=== PATIENT | male | born 1985 | race Caucasian/White ===

== ENCOUNTER 2018-01-29 16:32 | Emergency (ER) | payer MEDICAID ==
[~2018-01-29] VITALS: Ht 165.1 cm; Wt 67.1 kg
[2018-01-29 16:44] VITALS: BP 145/93
[2018-01-29] MEDS ORDERED: LEVE750T25 PO (16:47)
--- NOTE | 2018-01-29 16:50 | NUR ---
PT SENT TO ER LOBBY TO WAIT FOR A BED.
--- NOTE | 2018-01-29 17:05 | NUR ---
PT PLACED IN A W/C AND PLACED IN CHAIR E FOR CLOSER OBSERVATION.
--- NOTE | 2018-01-29 17:31 | NUR ---
PT MOVED TO BED 7.
--- NOTE | 2018-01-29 17:39 | NUR ---
Note undone in EDM - 01/29/18 at 1753 by MAINE PT RECIEVED FROM [facility]. 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 WITNESSED BY , DESCRIBED FULL STIFFNESS OF BILAT ARMS AND LEGS, EYES ROLLING TO BACK OF HEAD. STATES IT HAPPENED WHILE HE WAS ASLEEP, LASTED APPROXIMATELY 1 MIN. NO ORAL OR HEAD TRUAMA OBSERVED OR STATED BY PT. PT IS AXO X4, WITH EQUAL ABSORPTION PLANT OPERATOR/PUSHES, CLEAR SPEACH IN FULL SENTENCES. PT PLACED ON ALL MONITORS, VS WNL. PENDING MD FALCON
--- NOTE | 2018-01-29 17:39 | NUR ---
PT RECIEVED FROM [facility]. 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 WITNESSED BY , DESCRIBED FULL STIFFNESS OF BILAT ARMS AND LEGS, EYES ROLLING TO BACK OF HEAD. STATES IT HAPPENED WHILE HE WAS ASLEEP, LASTED APPROXIMATELY 1 MIN. NO HEAD TRAUMA OBSERVED OR STATED BY PT. ORAL TRAUMA TO LEFT CHEECK, MILD SWELLING OBSERBVED. PT IS AXO X4, WITH EQUAL TEACHER LEARNING DISABLED/PUSHES, CLEAR SPEACH IN FULL SENTENCES. PT PLACED ON ALL MONITORS, VS WNL. PENDING MD FALCON
[2018-01-29] MEDS ORDERED: LORazepam 2 MG/ML VIAL IVP ONE (17:40)
[2018-01-29] MEDS ORDERED: levETIRAcetam 500 MG TAB PO ONE (17:40)
--- NOTE | 2018-01-29 17:52 | NUR ---
DR REED AT BEDSIDE TO [facility]ANURAG PT
--- NOTE | 2018-01-29 17:59 | NUR ---
SZ PRECAUTIONS IN PLACE
[2018-01-29 18:00] LABS: BASOPHILS # (AUTO) 0.1 K/uL (0.00-0.22); BASOPHILS % (AUTO) 0.7 % (0.0-2.0); EOSINOPHILS # (AUTO) 0.5 K/uL (0-0.4); EOSINOPHILS % (AUTO) 5.8 % (0.0-4.0); HEMATOCRIT 43.6 % (36-52); HEMOGLOBIN 14.5 g/dL (12.0-18.0); LYMPHOCYTES # (AUTO) 2.4 K/uL (2.0-11.5); LYMPHOCYTES % (AUTO) 30.3 % (20.5-51.1); MEAN CORPUSCULAR HEMOGLOBIN 31 pg (27-31); MEAN CORPUSCULAR HGB CONC 33 g/dL (33-37); MEAN CORPUSCULAR VOLUME 92.2 fL (80-94); MONOCYTES # (AUTO) 0.4 K/uL (0.8-1.0); MONOCYTES % (AUTO) 5.7 % (1.7-9.3); NEUTROPHILS # (AUTO) 4.5 K/uL (1.8-7.7); NEUTROPHILS % (AUTO) 57.5 % (42.2-75.2); PLATELET COUNT (AUTO) 267 K/uL (140-450); RED BLOOD CELL COUNT(AUTO) 4.73 MIL/uL (4.20-6.10); RED CELL DISTRIBUTION WIDTH 13.6 % (11.6-13.7); WHITE BLOOD COUNT (AUTO) 7.9 K/uL (4.8-10.8)
[2018-01-29 18:18] LABS: ANION GAP 13.7 (8-16); CARBON DIOXIDE 26.1 mmol/L (21-32); CREATININE 1.1 mg/dL (0.7-1.3); POTASSIUM 3.8 mmol/L (3.5-5.1)
[2018-01-29 18:24] LABS: ALBUMIN 4.3 g/dL (3.4-5.0); MAGNESIUM 2.2 mg/dL (1.8-2.4); TOTAL BILIRUBIN 0.3 mg/dL (0.0-1.0)
[2018-01-29 18:37] LABS: BARBITURATE, URINE NEG. ng/ml (NEG <=200); BENZODIAZEPINE, URINE NEG. ng/mL (NEG <=200); CANNABINOID, URINE NEG. ng/mL (NEG <=50); COCAINE, URINE NEG. ng/mL (NEG <=300); OPIATE, URINE NEG. ng/mL (NEG <=2000); PHENCYCLIDINE SCREEN,URINE NEG. ng/mL (NEG <=25)
[2018-01-29 19:14] VITALS: BP 124/89
--- NOTE | 2018-01-29 19:15 | NUR ---
Patient discharged with v/s stable. Written and verbal after care instructions given and explained. Patient alert, oriented and verbalized understanding of instructions. Ambulatory with steady gait. All questions addressed prior to discharge. ID band removed. Patient advised to follow up with PMD. Rx of MARIBELL VILLAGRAN given. Patient educated on indication of medication including possible reaction and side effects. Opportunity to ask questions provided and answered.
== END 2018-01-29 19:15 | disposition home or self-care (01) ==
LOC: MED 16:32
DX: G40.909 Epilepsy, unspecified, not intractable, without status epilepticus (principal); Z79.899 Other long term (current) drug therapy
CPT/HCPCS: 36415; 80053; 80173; 80305; 82550; 83735; 85025; 96374; 99284; J2060

== ENCOUNTER 2021-09-09 02:40 | Emergency (ER) | payer OTHER, SELFPAY ==
[~2021-09-09] VITALS: Ht 167.6 cm; Wt 68.0 kg
[2021-09-09 02:40] VITALS: BP 167/98
[~2021-09-09 02:40] MED LIST: LEVE750T3 PO
--- NOTE | 2021-09-09 02:40 | NUR ---
PT TAKEN TO BED 12
--- NOTE | 2021-09-09 02:40 | NUR ---
LABS AT BEDSIDE. BLOOD OBTAINED.
--- NOTE | 2021-09-09 02:40 | NUR ---
37 Y/O MALE BIB PRIVATE AUTO, C/O SEIZURE. PATIENT PRESENTS TO ED WITH ACTIVE TONIC/CLONIC SZR LASTING 1 MINUTE IN FAMILY'S CAR. FAMILY STATES PT HAS BEEN SEIZING ON/OFF FOR THE LAST HALF HOUR PRIOR TO HOSPITAL ARRIVAL. SKIN IS PINK/WARM/DRY; PT IS UNCONSCIOUS; LUNGS CLEAR BL; HR EVEN AND REGULAR; NO FEVER, CP, SOB, OR COUGH AT THIS TIME; VSS; PATIENT POSITIONED SUPINE W/ HOB ELEVATED; BEDRAILS UP X2; BED DOWN. ER MD MADE AWARE OF PT STATUS. PT HAS HAD X4 SZRS FROM CAR TO GURNEY. UNABLE TO OBTAIN PT HX, ALLERGY, OR MEDS AT THIS TIME.
[2021-09-09] MEDS ORDERED: LORazepam 2 MG/ML VIAL IVP ONE (02:45)
--- NOTE | 2021-09-09 02:45 | NUR ---
Dr. Stringer examining patient.
[2021-09-09] MEDS ORDERED: LORazepam 2 MG/ML VIAL ONE (02:46)
[2021-09-09 02:51] LABS: BASOPHILS # (AUTO) 0.1 K/uL (0.00-0.22); BASOPHILS % (AUTO) 0.5 % (0.0-2.0); EOSINOPHILS % (AUTO) 3.8 % (0.0-4.0); HEMOGLOBIN 14.9 g/dL (12.0-18.0); MEAN CORPUSCULAR HEMOGLOBIN 31 pg (27-31); MEAN CORPUSCULAR HGB CONC 33 g/dL (33-37); MEAN CORPUSCULAR VOLUME 93.4 fL (80-94); MONOCYTES # (AUTO) 1.7 K/uL (0.8-1.0); MONOCYTES % (AUTO) 6.7 % (1.7-9.3); NEUTROPHILS # (AUTO) 10.7 K/uL (1.8-7.7); PLATELET COUNT (AUTO) 393 K/uL (140-450); RED BLOOD CELL COUNT(AUTO) 4.82 MIL/uL (4.20-6.10)
[2021-09-09 02:52] LABS: WHITE BLOOD COUNT (AUTO) 25.5 K/uL (4.8-10.8)
[2021-09-09] MEDS ORDERED: NACL 0.9% 1,000 ML IV ONE ×2 (02:55→04:05)
--- NOTE | 2021-09-09 02:55 | NUR ---
BOLUS OF 1000ML OF NS GIVEN AT THIS TIME PER MD. COMPLETED AT 0326.
[2021-09-09 03:30] LABS: ALBUMIN 4.3 g/dL (3.4-5.0); ANION GAP 25.1 (8-16); CARBON DIOXIDE 16.4 mmol/L (21-32); CREATININE 1.3 mg/dL (0.6-1.3); POTASSIUM 3.5 mmol/L (3.5-5.1); TOTAL BILIRUBIN 0.2 mg/dL (0.0-1.0)
--- NOTE | 2021-09-09 04:16 | NUR ---
PT WAS GIVEN 2MG/1ML OF LORAZEPAM VIA IM AT 0238 FOR ACTIVE SZR, PT WAS AGAIN GIVEN 2MG/1ML LORAZEPAM VIA IV AT 0248 FOR ACTIVE SZR, AND A 3RD TIME OF 2MG/1ML LORAZEPAM VIA IV AT 0303. PT HAS HAS A TOTAL OF 6MG AT THIS TIME.
--- NOTE | 2021-09-09 04:26 | NUR ---
PT'S CALLED TO CHECK UP ON PT. , GARRISON, STATED THAT THE PT BEGAN HAVING HEADACHES AND FEELING TIRED AT 0130 THIS MORNING PRIOR TO HIS SEIZURES. FAMILY STATES PT TAKES 1500MG KEPPRA BID, NKA, AND A HX OF SEIZURES. FAMILY STATES PT TYPICALLY HAS A FEVER WITH HIS SEIZURES. ALL QUESTIONS AND CONCERNS ADDRESSED AT THIS TIME. POC: SISTER, SONIA- , GARRISON-
[2021-09-09] MEDS ORDERED: LEVE1000 PO (06:20)
--- NOTE | 2021-09-09 07:38 | NUR ---
REPORT GIVEN TO LORENA ROLAND
--- NOTE | 2021-09-09 07:39 | NUR ---
REPORT RECEIVED FROM [facility] FOR TRANSFER OF CARE
--- NOTE | 2021-09-09 08:24 | NUR ---
Patient appears to be resting comfortably in bed. Vital Signs within normal limits. Respirations even and unlabored.
--- NOTE | 2021-09-09 09:47 | NUR ---
SPOKE WITH PATIENT AND INFORMED PATIENT IS UP FOR DISCHARGE. 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
[2021-09-09 10:02] VITALS: BP 111/76
--- NOTE | 2021-09-09 10:03 | NUR ---
Patient discharged with v/s stable. Written and verbal after care instructions given and explained. Patient verbalized understanding. Ambulatory with steady gait. All questions addressed prior to discharge. Advised to follow up with PMD.
== END 2021-09-09 10:02 | disposition home or self-care (01) ==
LOC: MED 02:40
DX: R56.9 Unspecified convulsions (principal); Z79.899 Other long term (current) drug therapy; Z98.890 Other specified postprocedural states
CPT/HCPCS: 36415; 80053; 80173; 85025; 96361; 96374; 99285; J2060; J7030

== ENCOUNTER 2021-11-01 19:37 | Inpatient (IN) | payer OTHER, SELFPAY ==
[~2021-11-01] VITALS: Ht 165.1 cm; Wt 68.0 kg
[~2021-11-01 19:37] MED LIST changes: +LEVE1000 PO
[2021-11-01 19:45] VITALS: BP 128/77
--- NOTE | 2021-11-01 19:49 | NUR ---
PATIENT REPORTS SEIZURE ACTIVITY. PER FAMILY HE HAS HAD 4 SEIZURES TODAY, TAKES KEPPRA. HISTORY OF SEIZURES SINCE 2007
[2021-11-01] MEDS ORDERED: ACETAMINOPHEN EXTRA STRENGTH 500 MG TAB PO ONE (19:50)
[2021-11-01] MEDS ORDERED: VALPROATE SODIUM IV ONE (19:50)
[2021-11-01] MEDS ORDERED: NACL 0.9% IV ONE (19:50)
--- NOTE | 2021-11-01 20:08 | NUR ---
TAKEN TO CT
--- NOTE | 2021-11-01 20:16 | NUR ---
BACK FROM CT
[2021-11-01 20:25] LABS: BASOPHILS # (AUTO) 0.1 K/uL (0.00-0.22); EOSINOPHILS # (AUTO) 0.2 K/uL (0-0.4); LYMPHOCYTES # (AUTO) 1.7 K/uL (2.0-11.5); MEAN CORPUSCULAR HEMOGLOBIN 30 pg (27-31); MEAN CORPUSCULAR HGB CONC 33 g/dL (33-37)
[2021-11-01] MEDS ORDERED: VALPROATE SODIUM 500 MG/5 ML VIAL IV ONE (20:45)
[2021-11-01] MEDS ORDERED: LORazepam 2 MG/ML VIAL IVP ONE ×3 (20:48→21:50)
[2021-11-01] MEDS ORDERED: LORazepam 2 MG/ML VIAL ONE ×2 (20:48→21:36)
--- NOTE | 2021-11-01 20:48 | NUR ---
Amanda whitfield in EDM - 11/01/21 at 2237 by MEDGJ VERBAL ORDER RECEIVED FROM DR. SY ATIVAN 2MG IVP x1 FOR SEIZURE
--- NOTE | 2021-11-01 20:49 | NUR ---
PATIENT HAD SEIZURE ACTIVITY AT THIS TIME LASTING APPROX 30 SECONDS. ACTIVITY STOPPED PRIOR TO ATIVAN ADMINISTRATION. ER MD AWARE, ADVISED TO HOLD ATIVAN. COMPLAINTS OF HEADACHE AT THIS TIME. PRESENTED RIGID, NO TONIC CLONIC ACTIVITY. COMPLAINS OF HEADACHE AT THIS TIME AND BACK TO BASELINE
[2021-11-01 20:51] LABS: ALBUMIN 3.8 g/dL (3.4-5.0); ANION GAP 10.2 (8-16); CARBON DIOXIDE 26.4 mmol/L (21-32); CREATININE 1.1 mg/dL (0.6-1.3); POTASSIUM 3.6 mmol/L (3.5-5.1); TOTAL BILIRUBIN 0.6 mg/dL (0.0-1.0)
[2021-11-01 20:52] LABS: HEMOGLOBIN 14.1 g/dL (12.0-18.0); RED BLOOD CELL COUNT(AUTO) 4.65 MIL/uL (4.20-6.10); WHITE BLOOD COUNT (AUTO) 19.2 K/uL (4.8-10.8)
[2021-11-01 20:53] LABS: BASOPHILS % (AUTO) 0.6 % (0.0-2.0); HEMATOCRIT 42.3 % (36-52); MONOCYTES # (AUTO) 0.9 K/uL (0.8-1.0); MONOCYTES % (AUTO) 4.9 % (1.7-9.3); NEUTROPHILS # (AUTO) 16.2 K/uL (1.8-7.7); NEUTROPHILS % (AUTO) 84.5 % (42.2-75.2); PLATELET COUNT (AUTO) 241 K/uL (140-450); RED CELL DISTRIBUTION WIDTH 13.8 % (11.6-13.7)
--- NOTE | 2021-11-01 20:58 | NUR ---
MED ADMINISTER DELAY UNABLE TO OVERRIDE MEDICATION. BILINGUAL INSTRUCTOR HAD TO COME RETRIEVE MEDICATION FROM [facility]
--- NOTE | 2021-11-01 21:17 | NUR ---
PER PATIETN FAMILY HE HAD ANOTHER EPISODE OF SEIZURES. NOT WITNESSED BY STAFF, NO TACHYCARDIA OR HYPOXIA NOTED AT THIS TIME. SHYAM WALKED OVER TO LAB
--- NOTE | 2021-11-01 21:31 | NUR ---
ADDITIONAL SEIZURE ACTIVITY NOTED. MAICOL ROMO PRESENT AND SAW ACTIVITY. NO NEW ORDERS AT THIS TIME
--- NOTE | 2021-11-01 21:39 | NUR ---
TONIC CLONIC SEIZURE ACTIVITY NOTED AT THIS TIME. 2MG ATIVAN ADMINISTERED. ER MD AWARE AND WITNESSED. ACTIVITY LAST APPROX 20 SEC WITH POSTICTAL PHASE
--- NOTE | 2021-11-01 21:46 | NUR ---
ADMITTING TOLD ADMISSION WAS CALLOUT AND RECIEVED VERBAL AUTH [facility] AUTH ENEDINA Zamudio FAX [phone] FOR CLINICALS
--- NOTE | 2021-11-01 21:52 | NUR ---
CLINICALS FAXED AT [phone]
--- NOTE | 2021-11-01 21:53 | NUR ---
VERBAL ORDER RECEIVED FROM DR. SY ATIVAN 2MG IVP x1 FOR SEIZURE. ORDER CARRIED OUT.
--- NOTE | 2021-11-01 21:53 | NUR ---
ADDITIONAL SEIZURE ACTIVITY NOTED AT THIS TIME. TACHYCARDIA AND HYPOXIA WITNESSED BY ER MD. NO TONIC CLONIC ACTIVITY. ADDITIONAL 2MG ATIVAN ORDERED AND ADMINISTERED AT THIS TIME.
--- NOTE | 2021-11-01 22:09 | NUR ---
advised patient of possible transfer to higher level of care facility
--- NOTE | 2021-11-01 22:12 | NUR ---
CLINCIAL FAXED TO [facility] FOR POSSIBLE ER TO ER TRANSFER
[2021-11-01] MEDS ORDERED: ACETAMINOPHEN 325 MG TAB PO PRN (22:45)
[2021-11-01] MEDS ORDERED: ONDANSETRON 4 MG/2 ML VIAL IVP PRN (22:45)
[2021-11-01] MEDS ORDERED: MORPHINE SULFATE 2 MG/ML SYR IVP PRN (22:45)
[2021-11-01] MEDS ORDERED: HYDROcodone/APAP 5/325 MG 1 TAB TAB PO PRN (22:45)
[2021-11-01] MEDS: NACL 0.9% 1,000 ML IV SCH ×2 (22:53→23:53)
--- NOTE | 2021-11-01 23:10 | NUR ---
REPORT GIVEN AT THIS TIME TO RN FOR 120B. SPOKE WITH HOUSE, VISITOR UNABLE TO STAY WITH PATIENT.
--- NOTE | 2021-11-02 | NUR ---
PT ADMITTED FROM ED AT 2335, LETHARGIC , V/S WNL. NO S/S OF PAIN, WITH D/O OF SEIZURES UNDER THE CARE OF DR WHELAN. ADMITTED WITH SEIZURE PRECAUTIONS IN PLACE, IVF ORDERED INTACT AND PATENT. CONT TO MONITOR WITH PLAN OF CARE
[2021-11-02 04:00] VITALS: BP 115/69
[2021-11-02 04:01] VITALS: BP 115/69
[2021-11-02 06:03] LABS: BASOPHILS # (AUTO) 0.1 K/uL (0.00-0.22); BASOPHILS % (AUTO) 0.4 % (0.0-2.0); EOSINOPHILS # (AUTO) 0.1 K/uL (0-0.4); EOSINOPHILS % (AUTO) 0.4 % (0.0-4.0); HEMATOCRIT 42.7 % (36-52); LYMPHOCYTES # (AUTO) 2.8 K/uL (2.0-11.5); LYMPHOCYTES % (AUTO) 14.4 % (20.5-51.1); MEAN CORPUSCULAR HEMOGLOBIN 30 pg (27-31); MEAN CORPUSCULAR HGB CONC 33 g/dL (33-37); MEAN CORPUSCULAR VOLUME 91.7 fL (80-94); MONOCYTES # (AUTO) 0.9 K/uL (0.8-1.0); MONOCYTES % (AUTO) 4.5 % (1.7-9.3); NEUTROPHILS # (AUTO) 15.5 K/uL (1.8-7.7); NEUTROPHILS % (AUTO) 80.3 % (42.2-75.2); PLATELET COUNT (AUTO) 230 K/uL (140-450); RED BLOOD CELL COUNT(AUTO) 4.66 MIL/uL (4.20-6.10); RED CELL DISTRIBUTION WIDTH 13.9 % (11.6-13.7); WHITE BLOOD COUNT (AUTO) 19.4 K/uL (4.8-10.8)
[2021-11-02 06:31] LABS: ALBUMIN 3.5 g/dL (3.4-5.0); ANION GAP 10.4 (8-16); CARBON DIOXIDE 26.6 mmol/L (21-32); CREATININE 0.9 mg/dL (0.6-1.3); MAGNESIUM 2.4 mg/dL (1.8-2.4); TOTAL BILIRUBIN 0.7 mg/dL (0.0-1.0)
--- NOTE | 2021-11-02 07:32 | NUR ---
RECEIVED BEDSIDE REPORT FROM DIE CUTTER OPERATOR NURSE FOR CONTINUITY OF CARE. PT IS AOX2, ABLE TO MAKE NEEDS KNOWN. RESPIRATIONS EVEN AND UNLABORED. ON ROOM AIR AND NO RESPIRATORY DISTRESS NOTED. SKIN IS WARM, DRY, AND INTACT. IV SITE ON LFA 20G IV. INTACT AND PATENT. INFUSING FLUIDS ORDERED. NOT SHOWING ANY SIGNS OF SEIZURE EPISODES. DENIES PAIN. PLAN OF CARE DISCUSSED. SAFETY AND SEIZURE PRECAUTIONS IN PLACE. CALL LIGHT WITHIN REACH. WILL CONTINUE TO MONITOR.
--- NOTE | 2021-11-02 07:47 | NUR ---
PT STABLE, NO S/S OF SEIZURES NOTED. NSR. ON TELE. REPORT TO INCOMING RN
[2021-11-02 08:00] VITALS: BP 106/63
[2021-11-02] MEDS: levETIRAcetam 500 MG TAB PO SCH ×2 (08:11→21:33)
--- NOTE | 2021-11-02 09:25 | NUR ---
ALL SCHEDULED MEDS GIVEN. PT IS STABLE. NO DISTRESS NOTED. WILL CONTINUE TO MONITOR
[2021-11-02 12:00] VITALS: BP 115/56
--- NOTE | 2021-11-02 13:36 | NUR ---
CHECKED ON PATIENT. PT IS STABLE. NO DISTRESS NOTED. WILL CONTINUE TO MONITOR.
--- NOTE | 2021-11-02 15:45 | NUR ---
CHECKED ON PATIENT. PT IS STABLE. NO DISTRESS NOTED. WILL CONTINUE TO MONITOR.
[2021-11-02 16:00] VITALS: BP 100/48
[2021-11-02] MEDS: NACL 0.9% 1,000 ML IV SCH ×2 (19:02→23:45)
--- NOTE | 2021-11-02 19:30 | NUR ---
ENDORSED TO SHELL PLATER NURSE FOR CONTINUITY OF CARE. PT IS STABLE.
--- NOTE | 2021-11-02 19:35 | NUR ---
RECEIVED BEDSIDE REPORT FROM DAY SHIFT NURSE. PATIENT IS AWAKE, ALERT, AND COOPERATIVE. RESPIRATION EVEN UNLABORED ON ROOM AIR. NO DISTRESS NOTED. SKIN IS WARM AND DRY. IV PATENT AND INTACT. PLAN OF CARE WAS DISCUSSED. ALL SAFETY MEASURES IN PLACE. BED IS AT LOW POSITION. CALL LIGHT WITHIN REACH. WILL CONTINUE TO MONITOR
[2021-11-02 20:00] VITALS: BP 126/77
--- NOTE | 2021-11-02 21:49 | NUR ---
PATIENT IS HERE FOR SEIZURE AND HAS A KEPPRA MEDICATION SCHEDULED FOR TONIGHT HOWEVER KEPPRA TROUGH STILL PENDING, NOTIFIED MD REGARDING THE SITUATION, PER MD ITS OKAY TO GIVE THE MEDICATION FOR NOW "LAB PROCESSING USUALLY TAKES FEW DAYS". ADMINISTER MEDICATION PER ORDER, WILL CONTINUE TO MONITOR
--- NOTE | 2021-11-02 22:45 | NUR ---
MADE ROUNDS, PATIENT SLEEPING RESPIRATION EVEN UNLABORED ON ROOM AIR. NO DISTRESS NOTED. WILL CONTINUE TO MONITOR
[2021-11-03] VITALS: BP 151/100
--- NOTE | 2021-11-03 00:10 | NUR ---
VITALS WERE TAKEN NO DISTRESS NOTED. WILL CONTINUE TO MONITOR
--- NOTE | 2021-11-03 03:32 | NUR ---
MADE ROUNDS PATIENT SLEEPING RESPIRATION EVEN UNLABORED ON ROOM AIR. NO DISTRESS NOTED
[2021-11-03 04:00] VITALS: BP 136/96
--- NOTE | 2021-11-03 04:30 | NUR ---
VITALS WERE TAKEN
[2021-11-03] MEDS: NACL 0.9% 1,000 ML IV SCH ×2 (06:43→20:41)
--- NOTE | 2021-11-03 07:24 | NUR ---
ENDORSED PATIENT TO DAY SHIFT NURSE FOR CONTINUITY OF CARE
--- NOTE | 2021-11-03 07:25 | NUR ---
RECEIVED REPORT FROM MATHEMATICS FACULTY MEMBER NURSE FOR CONTINUITY OF CARE. PT AWAKE IN BED. BREATHING SYMMETRICAL. DENIES PAIN AT THIS TIME. LFA 22G WITH NS RUNNING AT 80CC/HR. CALL LIGHT WITHIN REACH. ALL SAFETY MEASURES IN PLACE. ON SEIZURE PRECAUTIONS.
[2021-11-03 08:00] VITALS: BP 115/60
[2021-11-03] MEDS: levETIRAcetam 500 MG TAB PO SCH ×2 (09:09→20:40)
--- NOTE | 2021-11-03 10:35 | NUR ---
PT'S AT BEDSIDE AND STATED PT HAD SEIZURE EPISODE LASTED LESS THAN A MINUTE. PT WAS ALREADY AWAKE AND ALERT WHEN I GOT TO THE ROOM, O2 SAT 98% ON ROOM AIR. PT WANTED TO USE RESTROOM AND INSTRUCTED PT NOT TO GET UP FOR NOW DUE TO POSSIBLE SEIZURE EPISODE AND FALL RISK. DR KIM MADE AWARE WITH NEW ORDER MADE.
[2021-11-03] MEDS ORDERED: LORazepam 2 MG/ML VIAL IVP PRN (10:45)
--- NOTE | 2021-11-03 11:39 | NUR ---
PT STATES HIS NEUROLOGIST IS DR KAM, DR KIM MADE AWARE WITH ORDER FOR NEURO CONSULT WITH DR KAM. Addendum: 11/03/21 at 1203 by Indira Darby RN LEFT MESSAGE TO DR KAM REGARDING NEURO CONSULT
[2021-11-03 12:00] VITALS: BP 118/70
--- NOTE | 2021-11-03 14:23 | NUR ---
PT ASLEEP IN BED. BREATHING SYMMETRICAL. FLACC O. SEIZURE PRECAUTIONS IN PLACE. FREQUENT ROUNDS DONE. ALL SAFEY MEASURES IN PLACE. WILL CONTINUE TO MONITOR.
--- NOTE | 2021-11-03 15:00 | NUR ---
LFA IV LINE NOTED INFILTRATED, CHANGED TO LAC 20G, NO S/SX OF INFILTRATION NOTED.
[2021-11-03 16:00] VITALS: BP 101/59
--- NOTE | 2021-11-03 16:18 | NUR ---
PATIENT HAS BEEN SCREENED AND CATEGORIZED LOW NUTRITION RISK. PATIENT WILL BE SEEN WITHIN 7 DAYS OF ADMISSION. 11/08/[address]
--- NOTE | 2021-11-03 16:19 | NUR ---
DC PLANNING: THE PATIENT ADMITTED FROM HOME WITH C/O BREAKTHROUGH SEIZURES, X 4. STARTED ON KEPPRA PO,CURRENT LEVEL PENDING. THE PATIENT SEES DR KAM AN OUTPATIENT AND IS COMPLIANT WITH HIS MEDICATIONS. 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 NO DME OR H/O HOME HEALTH, PATIENT WAS ADMITTED FOR OBSERVATION AND WAS TO BE DC'D IF HE WAS SEIZURE FREE. THE PATIENT HAD A SEIZURE THIS MORNING AND DC WAS PUT ON HOLD. PATIENT WILL DC TO HOME WITH FAMILY WHEN HE IS CLINICALLY STABLE, CM WILL FOLLOW FOR NEEDS. Addendum: 11/03/21 at 1630 by Eda Peña Amended: Links added.
--- NOTE | 2021-11-03 19:26 | NUR ---
ENDORSED PT TO GLEASON OPERATOR NURSE, MADE AWARE OF PT'S X1 SEIZURE EPISODE. PT IN STABLE CONDITION AT THIS TIME.
--- NOTE | 2021-11-03 19:30 | NUR ---
RECEIVED BEDSIDE REPORT FROM DAY SHIFT RN FOR CONTINUITY OF CARE. PT IS AWAKE ON RA. PT IS NOT IN ANY DISTRESS. BREATHING RHYTHMIC AND UNLABORED. IVF RUNNING PER MD ORDER. SEIZURE PRECAUTIONS IN PLACE. CALL LIGHT WITHIN REACH. ALL SAFETY MEASURES TAKEN. WILL CONTINUE TO MONITOR THE PT.
[2021-11-03 20:00] VITALS: BP 110/60
--- NOTE | 2021-11-03 20:45 | NUR ---
ALL DUE MEDS GIVEN. NO ADVERSE REACTION NOTED. WILL CONTINUE TO MONITOR THE PT.
--- NOTE | 2021-11-03 23:50 | NUR ---
PT IS SLEEPING IN BED COMFORTABLY. PT IS NOT IN ANY DISTRESS. BREATHING RHYTHMIC AND UNLABORED. IVF RUNNING PER MD ORDER. CALL LIGHT WITHIN REACH. ALL SAFETY MEASURES TAKEN. WILL CONTINUE TO MONITOR THE PT.
[2021-11-04] VITALS: BP 89/58
[2021-11-04 04:00] VITALS: BP 98/60
--- NOTE | 2021-11-04 07:15 | NUR ---
RECEIVED REPORT FROM WELDER SETTER ELECTRON BEAM MACHINE NURSE FOR CONTINUITY OF CARE. PT ASLEEP IN BED. BREATHING SYMMETRICAL. FLACC O. SEIZURE PRECAUTIONS IN PLACE. WITH LAC 20G NS RUNNING AT 80CC/HR. CALL LIGHT WITHIN REACH. ALL SAFETY MEASURES IN PLACE.
--- NOTE | 2021-11-04 07:20 | NUR ---
ENDORSED PT TO DAY SHIFT RN FOR CONTINUITY OF CARE. PT IS STABLE.
[2021-11-04 08:00] VITALS: BP 105/68
--- NOTE | 2021-11-04 09:12 | NUR ---
DR KIM MADE AWARE OF LAST LABS WERE ON 11/02 WITH NEW ORDER FOR CBC, BP AND MG LEVEL TODAY.
[2021-11-04] MEDS: levETIRAcetam 500 MG TAB PO SCH (09:19)
[2021-11-04 11:45] LABS: BASOPHILS # (AUTO) 0.1 K/uL (0.00-0.22); EOSINOPHILS # (AUTO) 0.4 K/uL (0-0.4); EOSINOPHILS % (AUTO) 7.2 % (0.0-4.0); HEMATOCRIT 39.8 % (36-52); HEMOGLOBIN 13.4 g/dL (12.0-18.0); LYMPHOCYTES # (AUTO) 1.1 K/uL (2.0-11.5); LYMPHOCYTES % (AUTO) 19.7 % (20.5-51.1); MEAN CORPUSCULAR HEMOGLOBIN 31 pg (27-31); MEAN CORPUSCULAR HGB CONC 34 g/dL (33-37); MEAN CORPUSCULAR VOLUME 91.5 fL (80-94); MONOCYTES # (AUTO) 0.6 K/uL (0.8-1.0); MONOCYTES % (AUTO) 10.6 % (1.7-9.3); NEUTROPHILS # (AUTO) 3.5 K/uL (1.8-7.7); NEUTROPHILS % (AUTO) 61.5 % (42.2-75.2); PLATELET COUNT (AUTO) 226 K/uL (140-450); RED BLOOD CELL COUNT(AUTO) 4.35 MIL/uL (4.20-6.10); RED CELL DISTRIBUTION WIDTH 13.8 % (11.6-13.7); WHITE BLOOD COUNT (AUTO) 5.7 K/uL (4.8-10.8)
[2021-11-04 12:00] VITALS: BP 104/58
[2021-11-04 12:06] LABS: ANION GAP 8.3 (8-16); CARBON DIOXIDE 29.2 mmol/L (21-32); CREATININE 0.8 mg/dL (0.6-1.3); POTASSIUM 3.5 mmol/L (3.5-5.1)
--- NOTE | 2021-11-04 13:20 | NUR ---
PT VERBALIZED WANTING TO TALK TO DR JULIO MD AT STATION AND MADE AWARE.
[2021-11-04] MEDS: NACL 0.9% 1,000 ML IV SCH (13:25)
[2021-11-04 14:51] VITALS: BP 104/58
--- NOTE | 2021-11-04 16:43 | NUR ---
PT DISCHARGED TO HOME WITH PAPERWORKS AND BELONGINGS, PICKED UP BY . PT IN STABLE CONDITION.
== END 2021-11-04 16:40 | disposition home or self-care (01) | DRG 53 ==
LOC: MED 19:37 → MTU 22:45 → OBSVTOIN 11-03 14:34
PROVIDERS: ADMIT Hospitalist; ATTEND Hospitalist
DX: G40.901 Epilepsy, unspecified, not intractable, with status epilepticus (principal); Z20.822 Contact with and (suspected) exposure to COVID-19
CPT/HCPCS: G0378 ×26; 36415; 70450; 80048; 80053; 80173; 83735; 85025; J2060; J3490